=== PATIENT | female | born 1975 | race African-American/Black ===

== ENCOUNTER 2018-03-11 16:14 | Emergency (ER) | payer OTHER ==
[~2018-03-11] VITALS: Ht 167.6 cm; Wt 82.0 kg
[2018-03-11 16:44] VITALS: BP 125/76
== END 2018-03-11 19:30 | disposition left against medical advice (07) ==
LOC: ER 16:14
DX: Z53.21 Procedure and treatment not carried out due to patient leaving prior to being seen by health care provider (principal)